=== PATIENT | male | born 1995 | race Caucasian/White ===

== ENCOUNTER 2023-08-04 17:06 | Emergency (ER) | payer OTHER ==
[2023-08-04 18:04] VITALS: BP 110/81; PULSE 84; RESP 16; TEMP 98.5; BMI 20.3
[2023-08-04 18:05] LABS: HEMATOCRIT 46.2 % (35.4-49); HEMOGLOBIN 15.2 G/dL (11.7-16.9); MCH 30.2 pg (25.7-33.7); MCHC 32.8 g/dl (32.0-35.9); MEAN CELL VOLUME 91.8 fl (80-96); MEAN PLT VOLUME 9.2 fl (7.5-11.1); PLATELET COUNT 193.5 10^3/uL (134-434); RBC 5.03 10^6/uL (4.00-5.60); RDW 14.6 % (11.9-15.9); WHITE BLOOD COUNT 7.3 10^3/uL (4.0-10.8)
[2023-08-04] MEDS ORDERED: ONDANSETRON 4 MG/2 ML VIAL ONE (18:06)
[2023-08-04 18:07] LABS: INR 1.02 (0.83-1.09); PROTHROMBIN TIME (PATIENT) 11.6 SEC (9.7-13.0)
[2023-08-04 18:10] LABS: ACTIVATED PTT 31.3 SECONDS (25.2-36.5)
[2023-08-04] MEDS: morphine SULFATE 4 MG/ML VIAL IVPUSH ONE ×2 (18:16→19:29)
[2023-08-04 18:17] LABS: BILIRUBIN,TOTAL 0.9 mg/dl (0.2-1); CALCIUM 10.3 mg/dl (8.5-10.1); CREATININE 1.1 mg/dl (0.6-1.3); POTASSIUM 3.5 mmol/L (3.5-5.1); TOT PROT 7.8 g/dl (6.4-8.2)
[2023-08-04] MEDS: ONDANSETRON 4 MG/2 ML VIAL IVPUSH ONE (18:17)
[2023-08-04] MEDS ORDERED: LIDOCAINE HCL 2% (20ML MULTI-DOSE VIAL) ONE (18:25)
[2023-08-04] MEDS: LIDOCAINE HCL 1%, 10 MG/ML (50 mL VIAL) SQ ONE (19:03)
[2023-08-04 20:36] LABS: PLATELET ESTIMATE ADEQUATE
== END 2023-08-04 19:32 | disposition home or self-care (01) ==
LOC: FER 17:06
PROC: 0S9C3ZZ Drainage of Right Knee Joint, Percutaneous Approach (ICD-10-PCS; principal; 2023-08-04)
PROC: 3E033NZ Introduction of Analgesics, Hypnotics, Sedatives into Peripheral Vein, Percutaneous Approach (ICD-10-PCS; 2023-08-04)
PROC: 3E033NZ Introduction of Analgesics, Hypnotics, Sedatives into Peripheral Vein, Percutaneous Approach (ICD-10-PCS; 2023-08-04)
PROC: 3E033NZ Introduction of Analgesics, Hypnotics, Sedatives into Peripheral Vein, Percutaneous Approach (ICD-10-PCS; 2023-08-04)
PROC: 3E033GC Introduction of Other Therapeutic Substance into Peripheral Vein, Percutaneous Approach (ICD-10-PCS; 2023-08-04)
DX: M25.461 Effusion, right knee (principal); M25.561 Pain in right knee
CPT/HCPCS: 36415; 73562-TC-RT-FY; 80053; 85025; 85610; 85730; 86850; 86900; 86901; 99284-25